=== PATIENT | female | born 1975 | race African-American/Black ===

== ENCOUNTER 2023-05-02 09:40 | Outpatient (CLI) | payer BC | END 2023-05-02 09:41 | disposition home or self-care (01) | LOC: CSHWCC 09:40 | PROVIDERS: ATTEND Nurse Practitioner Family | DX: E11.621 Type 2 diabetes mellitus with foot ulcer (principal); L97.418 Non-pressure chronic ulcer of right heel and midfoot with other specified severity; T81.89XD Other complications of procedures, not elsewhere classified, subsequent encounter; R60.0 Localized edema | CPT/HCPCS: 29581; 97597; 97605; 99203; G0463 ==

== ENCOUNTER 2023-05-05 10:52 | Outpatient (CLI) | payer BC | END 2023-05-05 10:53 | disposition home or self-care (01) | LOC: CSHWCC 10:52 | PROVIDERS: ATTEND Nurse Practitioner Family | DX: T81.89XD Other complications of procedures, not elsewhere classified, subsequent encounter (principal); E11.621 Type 2 diabetes mellitus with foot ulcer; L97.418 Non-pressure chronic ulcer of right heel and midfoot with other specified severity; R60.0 Localized edema | CPT/HCPCS: 29581; 97605; 99213; G0463 ==

== ENCOUNTER 2023-05-14 10:35 | Outpatient (CLI) | payer BC | END 2023-05-14 10:36 | disposition home or self-care (01) | LOC: CSHWCC 10:35 | PROVIDERS: ATTEND Nurse Practitioner Family | DX: E11.621 Type 2 diabetes mellitus with foot ulcer (principal); T81.89XD Other complications of procedures, not elsewhere classified, subsequent encounter; L97.418 Non-pressure chronic ulcer of right heel and midfoot with other specified severity; R60.0 Localized edema | CPT/HCPCS: 29581; 97605; 99211; G0463 ==

== ENCOUNTER 2023-05-26 10:05 | Emergency (ER) | payer BC | END 2023-05-26 10:59 | disposition home or self-care (01) | LOC: CSHERS 10:05 | DX: L76.82 Other postprocedural complications of skin and subcutaneous tissue (principal); I11.0 Hypertensive heart disease with heart failure; I50.9 Heart failure, unspecified; E11.40 Type 2 diabetes mellitus with diabetic neuropathy, unspecified; Z87.891 Personal history of nicotine dependence | CPT/HCPCS: 99282 ==

== ENCOUNTER 2023-05-28 08:31 | Outpatient (CLI) | payer BC | END 2023-05-28 08:32 | disposition home or self-care (01) | LOC: CSHWCC 08:31 | PROVIDERS: ATTEND Nurse Practitioner Family | DX: E11.621 Type 2 diabetes mellitus with foot ulcer (principal); L97.418 Non-pressure chronic ulcer of right heel and midfoot with other specified severity; T81.89XD Other complications of procedures, not elsewhere classified, subsequent encounter | CPT/HCPCS: 11043; 29581; 97605 ==

== ENCOUNTER 2023-06-04 13:47 | Outpatient (CLI) | payer BC | END 2023-06-04 13:48 | disposition home or self-care (01) | LOC: CSHWCC 13:47 | PROVIDERS: ATTEND Nurse Practitioner Family | DX: R60.0 Localized edema (principal) | CPT/HCPCS: 97597; 97605 ==

== ENCOUNTER 2023-06-13 10:10 | Outpatient (CLI) | payer BC | END 2023-06-13 10:11 | disposition home or self-care (01) | LOC: CSHWCC 10:10 | PROVIDERS: ATTEND Nurse Practitioner Family | DX: T81.89XD Other complications of procedures, not elsewhere classified, subsequent encounter (principal); R60.0 Localized edema | CPT/HCPCS: 11043; 97605 ==

== ENCOUNTER 2023-06-20 08:00 | Outpatient (CLI) | payer BC | END 2023-06-20 08:01 | disposition home or self-care (01) | LOC: CSHWCC 08:00 | PROVIDERS: ATTEND Nurse Practitioner Family | DX: T81.89XD Other complications of procedures, not elsewhere classified, subsequent encounter (principal); R60.0 Localized edema | CPT/HCPCS: 97597; 97605 ==

== ENCOUNTER 2023-06-27 08:20 | Outpatient (CLI) | payer BC | END 2023-06-27 08:21 | disposition home or self-care (01) | LOC: CSHWCC 08:20 | PROVIDERS: ATTEND Nurse Practitioner Family | DX: R60.0 Localized edema (principal); T81.89XD Other complications of procedures, not elsewhere classified, subsequent encounter | CPT/HCPCS: 29581; 97597; 97605 ==

== ENCOUNTER 2023-07-04 08:12 | Outpatient (CLI) | payer BC | END 2023-07-04 08:13 | disposition home or self-care (01) | LOC: CSHWCC 08:12 | PROVIDERS: ATTEND Nurse Practitioner Family | DX: T81.89XD Other complications of procedures, not elsewhere classified, subsequent encounter (principal); R60.0 Localized edema | CPT/HCPCS: 29581 ==

== ENCOUNTER 2023-07-11 08:17 | Outpatient (CLI) | payer BC | END 2023-07-11 08:18 | disposition home or self-care (01) | LOC: CSHWCC 08:17 | PROVIDERS: ATTEND Nurse Practitioner Family | DX: R60.0 Localized edema (principal); T81.89XD Other complications of procedures, not elsewhere classified, subsequent encounter | CPT/HCPCS: 11042; 29581 ==

== ENCOUNTER 2023-08-22 08:26 | Outpatient (CLI) | payer BC | END 2023-08-22 08:27 | disposition home or self-care (01) | LOC: CSHWCC 08:26 | PROVIDERS: ATTEND Preventive Medicine Undersea and Hyperbaric Medicine | DX: T81.89XD Other complications of procedures, not elsewhere classified, subsequent encounter (principal) | CPT/HCPCS: 97602 ==

== ENCOUNTER 2023-09-23 16:34 | Emergency (ER) | payer BC ==
[2023-09-23 17:47] LABS: SARS-CoV-2 NAA Rapid Test Not Detected (NotDetected)
== END 2023-09-23 18:12 | disposition home or self-care (01) ==
LOC: CSHERS 16:34
DX: B34.9 Viral infection, unspecified (principal); I11.9 Hypertensive heart disease without heart failure; I50.9 Heart failure, unspecified; E11.9 Type 2 diabetes mellitus without complications; Z20.822 Contact with and (suspected) exposure to COVID-19; Z87.891 Personal history of nicotine dependence
CPT/HCPCS: 99284

== ENCOUNTER 2023-09-30 16:09 | Emergency (ER) | payer BC ==
[2023-09-30] MEDS ORDERED: HYDROcodone/Acetaminophen 5/325 mg Tablet ONE (16:48)
== END 2023-09-30 17:09 | disposition home or self-care (01) ==
LOC: CSHERS 16:09
DX: M79.672 Pain in left foot (principal); I11.0 Hypertensive heart disease with heart failure; I50.9 Heart failure, unspecified; E11.40 Type 2 diabetes mellitus with diabetic neuropathy, unspecified; Z87.891 Personal history of nicotine dependence

== ENCOUNTER 2023-10-06 15:38 | Emergency (ER) | payer BC | END 2023-10-06 18:06 | disposition home or self-care (01) | LOC: CSHERS 15:38 | DX: R60.0 Localized edema (principal); I11.0 Hypertensive heart disease with heart failure; I50.9 Heart failure, unspecified; E11.40 Type 2 diabetes mellitus with diabetic neuropathy, unspecified; Z87.891 Personal history of nicotine dependence ==

== ENCOUNTER 2023-10-07 09:24 | Outpatient (CLI) | payer BC | END 2023-10-07 09:25 | disposition home or self-care (01) | LOC: CSHWCC 09:24 | PROVIDERS: ATTEND Physician Assistant | DX: I87.309 Chronic venous hypertension (idiopathic) without complications of unspecified lower extremity (principal) | CPT/HCPCS: 99214; G0463 ==